=== PATIENT | female | born 1985 | race Caucasian/White ===

== ENCOUNTER 2016-11-07 18:55 | Emergency (ER) ==
[2016-11-07] MEDS ORDERED: PHENERGAN IM ONE (19:15)
[2016-11-07 19:20] LABS: URINE SOURCE CLEAN CATCH
--- NOTE | 2016-11-07 19:21 | PROVIDER DOCUMENTATION ---
HPI-Female /OB/Breast - General Chief Complaint: Abdominal Pain Stated Complaint: 14 WEEKS PREG (THROWING UP) Time Seen by Provider: 11/07/16 19:09 Source: reports: patient Allergies/Adverse Reactions: Patient Allergies Allergy/AdvReac Type Severity Reaction Status Date / Time No Known Allergies Allergy Verified 07/02/13 19:26 Home Medications: Home Medication List Medication Instructions Recorded Confirmed Last Taken Type Cephalexin [Keflex] 500 mg PO BID #14 capsule 11/07/16 Unknown Rx - History of Present Illness-Female /OB Nature of Presenting Problem: 31 y/o , 14 wks dated by US in October at [facility], no care, still smoking a pack a day, c/o ruq pain that radiates to the scapula and vomiting, that is worse than her typical related nausea and vomiting. Took a phenergan at 10:00, and 1200 a Zofran. STates she has not been able to eat since then. Denies vaginal bleeding, spotting or dysuria. Denies lower abdominal pain Review of Systems - Adult - REVIEW OF SYSTEMS - ADULT Constitutional: reports: no symptoms reported. denies: chills, fever, fatique Eyes: reports: no symptoms reported. denies: decreased vision, blurred vision, double vision, eye pain Ears, Nose, Mouth & Throat: reports: no symptoms reported. denies: ear pain, nose pain, throat pain Cardiovascular: reports: no symptoms reported. denies: chest pain, palpitations Respiratory: reports: no symptoms reported. denies: cough, shortness of breath , wheezing Gastrointestinal: reports: see HPI, abdominal pain, nausea, poor appetite, vomiting. denies: diarrhea Genitourinary: reports: no symptoms reported. denies: dysuria, discharge, frequency Musculoskeletal: reports: no symptoms reported. denies: muscle aches Integumentary: reports: no symptoms reported. denies: rash Neurological: reports: no symptoms reported. denies: headache/migraines Psychiatric: reports: no symptoms reported Endocrine: reports: no symptoms reported Hematologic/Lymphatic: reports: no symptoms reported Allergic/Immunologic: reports: no symptoms reported All Other Systems: Reviewed and Negative Past History - Adult - PAST MEDICAL HISTORY-ADULT Review of Records: reports: Old Records Reviewed, Nursing Assessment Review, Medications Reviewed Major Childhood Illnesses: reports: denies history Cardiovascular: reports: denies history Respiratory: reports: denies history Gastrointestinal: reports: denies history Obstetrical/Gynecological: reports: denies history Genitourinary: reports: denies history Musculoskeletal: reports: denies history Neurological: reports: denies history Endocrine/Immune: reports: denies history Other Conditions: reports: denies history - FAMILY HISTORY Family History: reviewed, not pertinent - SOCIAL HISTORY Smoking: greater than 1 pack/day Provider spent 3-5 mins advising pt. on dangers of tobacco.: Discussed manners to quit use, and f/u contacts for add'l counseling. Substance Use: none/never Alcohol Use Frequency: never Physical Exam-General - PHYSICAL EXAM-ADULT Initial Vital Signs Reviewed: Yes - CONSTITUTIONAL General Appearance: appears well, alert, no apparent distress - EYES Eyes: PERRL/EOMI, pink conjunctivae - HEAD, EARS, NOSE, MOUTH & THROAT HENMT: normocephalic/atraumatic, moist mucous membranes - NECK Neck: normal inspection - RESPIRATORY Respiratory: chest non-tender, lungs clear, normal breath sounds, no pleuratic chest pain, no respiratory distress, no accessory muscle use. negative: respiratory distress, decreased breath sounds, accessory muscle use, crackles, rales, rhonchi, wheezing - CARDIOVASCULAR Cardiovascular: normal peripheral pulses, regular rate, rhythm - GASTROINTESTINAL (ABDOMEN) Abdominal Exam: normal bowel sounds, soft, no organomegaly, no pulsatile mass, Lynne's sign - MUSCULOSKELETAL Back Exam: normal inspection Extremity: normal gait - SKIN Integumentary: normal color, normal turgor, warm/dry - NEUROLOGIC Neurologic: grossly normal, no motor/sensory deficits - PSYCHIATRIC Psych/Mental Status: normal mood/affect, normal thought content, normal thought process Progress - PLAN OF CARE/RESULTS Progress/Plan/Lab Results: Vital Signs Temp Pulse Resp BP Pulse Ox 11/07/16 19:01 98.8 F 112 H 20 117/066 100 No Known Allergies Allergy (Verified 07/02/13 19:26) No Home Medications 11/07/16 Laboratory 11/07/16 11/07/16 11/07/16 19:55 19:55 19:55 WBC 8.40 RBC 4.47 Hgb 14.3 Hct 40.3 MCV 90.2 MCH 32.0 H MCHC 35.5 RDW Std Deviation 13.0 Plt Count 265 MPV 8.9 Immature Gran % (Auto) 0.2 Neut % (Auto) 86.1 H Lymph % (Auto) 8.6 L [place] % (Auto) 4.0 Eos % (Auto) 1.0 Baso % (Auto) 0.1 Immature Gran # (Auto) 0.02 Neut # (Auto) 7.23 H Lymph # (Auto) 0.72 L [place] # (Auto) 0.34 Eos # (Auto) 0.08 Baso # (Auto) 0.01 Sodium 131 L Potassium 2.9 L Chloride 100 Carbon Dioxide 19 L Anion Gap 11 BUN 12 Creatinine 0.4 L Estimated GFR/1.73 m2 > 60 BUN/Creatinine Ratio 30 Glucose 129 H Calculated Osmolality 264 Calcium 8.6 L Total Bilirubin 0.30 AST 16 ALT 16 Alkaline Phosphatase 64 Total Protein 6.8 Albumin 3.6 Globulin 3.0 Albumin/Globulin Ratio 1.0 Ser , Semi-Qnt 10090.0 Urine Source Urine Color Urine Clarity Urine pH Ur Specific [place] Urine Protein Urine Ketones Urine Blood Urine Nitrite Urine Bilirubin Urine Urobilinogen Urine Microscopic RBC Urine WBC Urine Microscopic WBC Ur Epithelial Cells Urine Crystals Urine Bacteria Urine Casts Urine Yeast Urine Glucose 11/07/16 19:12 WBC RBC Hgb Hct MCV MCH MCHC RDW Std Deviation Plt Count MPV Immature Gran % (Auto) Neut % (Auto) Lymph % (Auto) [place] % (Auto) Eos % (Auto) Baso % (Auto) Immature Gran # (Auto) Neut # (Auto) Lymph # (Auto) [place] # (Auto) Eos # (Auto) Baso # (Auto) Sodium Potassium Chloride Carbon Dioxide Anion Gap BUN Creatinine Estimated GFR/1.73 m2 BUN/Creatinine Ratio Glucose Calculated Osmolality Calcium Total Bilirubin AST ALT Alkaline Phosphatase Total Protein Albumin Globulin Albumin/Globulin Ratio Ser , Semi-Qnt Urine Source CLEAN CATCH Urine Color ASHANTI Urine Clarity SL. CLOUDY A Urine pH 6.5 Ur Specific [place] 1.015 Urine Protein 1+(30 mg/dL) A Urine Ketones 3+(Large) A Urine Blood NEGATIVE Urine Nitrite NEGATIVE Urine Bilirubin 1+ A Urine Urobilinogen 1+(1 mg/dL) Urine Microscopic RBC Not Reportable Urine WBC 2+ A Urine Microscopic WBC TNTC A Ur Epithelial Cells >10 A Urine Crystals NONE SEEN Urine Bacteria 1+ Urine Casts NONE SEEN Urine Yeast NONE SEEN Urine Glucose NEGATIVE Orders Category Date Time Status FHT [ Heart Tones] NOW Care 11/07/16 19:19 Active Saline Loc NOW Care 11/07/16 19:44 Active US GB < RUQ (LIMITED) [US] Stat Exams 11/07/16 19:14 Draft US OBS COMPLETE < 14 WKS [US] Stat Exams 11/07/16 21:14 Taken CBC WITH ELECTRONIC DIFF [HEME] Stat Lab 11/07/16 19:55 Completed COMPREHENSIVE METABOLIC PANEL [CHEM] Stat Lab 11/07/16 19:55 Completed QUANT TEST Stat Lab 11/07/16 19:[address] W/POSS RFLX CULT [URINALYSIS] Stat Lab 11/07/16 19:12 Completed URINE CULTURE [RM] Routine Lab 11/07/16 Received 0.9% Sodium Chloride Inj [Ns] 1,000 ml Med 11/07/16 19:44 Discontinued IV 999 mls/hr CefTRIAXONE 1 GM/NS [Rocephin 1 gm/Ns] 50 ml Med 11/07/16 19:44 Discontinued IV NOW Potassium Chloride E.r. [Klor-Con] Med 11/07/16 20:44 Discontinued 40 meq PO NOW ONE Promethazine [Phenergan] Med 11/07/16 19:15 Discontinued 25 mg IM NOW ONE - ULTRASOUND (By Radiology) 1 US Study: Gallbladder Impression: Normal (single gallstone or polyp, otherwise normal gallbladder and RUQ US per Dr. Santo, radiology) 2 US Study: Transvaginal Impression: Normal (IUP at 15 W 0 d FHR [address] Santo) Departure - Departure Time of Disposition Order: 22:43 DIAGNOSIS: Nausea and vomiting during prior to 22 weeks gestation, Gallbladder pain, Acute UTI Disposition: HOME 01 Certified Medical Emergency: Emergent Condition: Stable Additional Instructions: ED Follow Up Instructions: You have been treated by a care provider in the Emergency Department. These instructions are being provided to you so you can have an understanding of how to care for yourself upon discharge. Upon discharge from the Emergency Department, you are responsible for making arrangements for follow-up care by a physician of your choice. Take all prescribed medications as directed. Return to the Emergency Department immediately for any new or worsening symptoms. You may call the Physician Referral phone number at [phone] to obtain a list of Physicians who are taking new patients. Prescriptions: Cephalexin [Keflex] 500 mg PO BID #14 capsule Attestation - Physician/ PEMA Attestation Patient care was provided by Advanced Practice Provider:: Yes Advanced Practice Provider:: Annette Grimaldo Advanced Practice Provider documentation review:: The Mid-level provider documentation, treatment plan and medical decision making was reviewed by the physician who agrees with all treatment and medical decision making by the MLP.
[2016-11-07 19:25] LABS: BILIRUBIN URINE 1+ (NEGATIVE); BLOOD URINE NEGATIVE (NEGATIVE); CLARITY SL. CLOUDY (CLEAR); COLOR AMBER; GLUCOSE URINE NEGATIVE (NEGATIVE); LEUKOCYTES URINE 2+ (NEGATIVE); NITRITE URINE NEGATIVE (NEGATIVE); PH URINE 6.5; PROTEIN URINE 1+(30 mg/dL) mg/dL (NEGATIVE); SP GRAVITY URINE 1.015; UROBILINOGEN URINE 1+(1 mg/dL)
[2016-11-07] MEDS ORDERED: NS 1,000 ML IV ONE (19:44)
[2016-11-07] MEDS ORDERED: ROCEPHIN 1 GM/NS 50 ML IV ONE (19:44)
[2016-11-07 19:46] LABS: URINE CAST NONE SEEN /LPF; URINE CRYSTAL NONE SEEN /HPF; URINE CULTURE PL NEEDED? YES; URINE EPITHELIAL CELLS >10 /HPF (<10); URINE WBC TNTC /HPF (<10)
[2016-11-07 20:03] LABS: MANUAL DIFF NEEDED? NO
[2016-11-07 20:18] LABS: BASO% 0.1 % (0.0-0.8); EOS# 0.08 X1000 (0.0-0.7); HEMATOCRIT 40.3 % (37.0-47.0); HEMOGLOBIN 14.3 g/dL (12.0-16.0); IMM GRAN# 0.02 X1000 (0.0-0.04); IMM GRAN% 0.2 % (0.0-0.5); LYMPH# 0.72 X1000 (1.2-3.4); LYMPH% 8.6 % (20.5-51.1); MCHC 35.5 g/dL (33-37); MCV 90.2 FL (81-99); MONO# 0.34 X1000 (0.11-0.59); MPV 8.9 FL (7.4-10.4); NEUT% 86.1 % (42.2-75.2); PLT 265 X1000 (130-400); RBC 4.47 XMIL (4.2-5.4)
[2016-11-07 20:38] LABS: AGAP 11; ALBUMIN 3.6 g/dL (3.5-5.0); ALKALINE PHOSPHATASE 64 U/L (32-104); BUN 12 mg/dL (8-22); CALCIUM 8.6 mg/dL (8.8-10.2); CHLORIDE 100 mmol/L (98-107); COSMO 264; GOT 16 U/L (10-30); GPT 16 U/L (10-36); POTASSIUM 2.9 mmol/L (3.5-5.1); SODIUM 131 mmol/L (136-145); TCO2 19 mmol/L (25-35); TOTAL PROTEIN 6.8 g/dL (6.3-8.3)
[2016-11-07] MEDS ORDERED: KLOR-CON PO ONE (20:44)
--- NOTE | 2016-11-07 21:49 | Diag Imaging Result Document ---
PROCEDURE NAME: US GB < RUQ (LIMITED) - 11/07/2016 RIGHT UPPER QUADRANT ULTRASOUND: FINDINGS: Normal pancreas. No aneurysmal dilatation to the abdominal aorta. Normal inferior vena cava. No focal or diffuse hepatic abnormality. No hydronephrosis to the right kidney. Normal echogenicity and cortical thickness. There is a 4 mm echogenic structure within the gallbladder. No posterior shadowing. No definite movement. The gallbladder wall is not thickened. No ascites in the right upper quadrant. IMPRESSION: Tiny nonshadowing stone versus polyp within the gallbladder, but otherwise normal right upper quadrant ultrasound. The common bile duct measures 4 mm. A preliminary report was given at the time of the exam.
[2016-11-07 23:06] VITALS: BP 103/63
--- NOTE | 2016-11-08 06:52 | Diag Imaging Result Document ---
PROCEDURE NAME: US OBS COMPLETE < 14 WKS - 11/07/2016 TRANSVAGINAL PELVIC ULTRASOUND: FINDINGS: There is an intrauterine with an estimated gestational age of 15 weeks 0 days plus/minus 8 days. This would correspond with an estimated date of delivery of May 01, 2017. heart rate is 156 beats per minute. The placenta is anterior. Cervix is closed. No focal abnormality identified. IMPRESSION: Intrauterine with an estimated gestational age of 15 weeks 0 days. A preliminary report was given at 10:36 p.m.
== END 2016-11-07 23:07 | disposition home or self-care (01) ==
LOC: P.ED 18:55
DX: O21.0 Mild hyperemesis gravidarum (principal); O23.42 Unspecified infection of urinary tract in pregnancy, second trimester; O26.892 Other specified pregnancy related conditions, second trimester; K82.9 Disease of gallbladder, unspecified; R10.9 Unspecified abdominal pain; Z3A.15 15 weeks gestation of pregnancy; O99.332 Smoking (tobacco) complicating pregnancy, second trimester; F17.210 Nicotine dependence, cigarettes, uncomplicated; Z71.6 Tobacco abuse counseling
CPT/HCPCS: 76705; 76801; 80053; 81001; 84702; 85025; 87088; 96361; 96365; 96372; J0696; J2550; J7030

== ENCOUNTER 2017-05-03 05:22 | Inpatient (IN) ==
[2017-05-02 11:14] LABS: HEMATOCRIT 36.5 % (37.0-47.0); HEMOGLOBIN 12.6 g/dL (12.0-16.0); MCH 31.7 PG (27-31); MCHC 34.5 g/dL (33-37); MCV 91.9 FL (81-99); MPV 9.3 FL (7.4-10.4); RBC 3.97 XMIL (4.2-5.4)
--- NOTE | 2017-05-03 03:41 | HISTORY AND PHYSICAL ---
DATE OF PROCEDURE: 05/03/2017 PREOP DIAGNOSES: 1. Intrauterine at term requested primary delivery. 2. Undesired fertility for tubal ligation. CONDITION: Stable. HISTORY OF PRESENT ILLNESS: Ms. Stokes is a 31-year-old 4, para 3 with estimated date of delivery of 05/05/2017 who requested a primary delivery and a tubal ligation. Patient stated understanding risk and benefits of delivery. She has had good care with care starting at 18 weeks. A positive blood type. GC and Chlamydia negative. Hepatitis B negative, RPR nonreactive. HIV negative, rubella immune, she is having baby girl, she had a normal anatomy scan, Glucola was 75 and GBS was negative. PAST HISTORY: 3 previous deliveries of vaginal. PAST MEDICAL HISTORY: Negative. PAST SURGICAL HISTORY: Tonsillectomy. ALLERGIES: No allergies. MEDICATIONS: She is taking vitamins with iron. SOCIAL HISTORY: [id number] smoker. Denies alcohol, drugs. FAMILY HISTORY: Noncontributory. PHYSICAL EXAM: VITAL SIGNS: Weight 169, height 67 inches, blood pressure 102/62. GENERAL: She is alert and cooperative no distress. NECK: Supple. LUNGS: Clear. HEART: Regular sinus rhythm. ABDOMEN: Is gravid, fundal height deferred. EXTREMITIES: No cyanosis, clubbing, edema extremities. ASSESSMENT: Term , undesired fertility. PLAN: Primary delivery with tubal ligation. cc: Ceferino Kelly MD
[2017-05-03] MEDS ORDERED: KEFZOL 1 GM/D5W 1 GM/50 ML IVPB IV PRN (05:25)
[2017-05-03] MEDS ORDERED: SODIUM CHLORIDE 0.9% INJ ONE (05:26)
[2017-05-03] MEDS ORDERED: BICITRA PO ONE (05:26)
[2017-05-03] MEDS ORDERED: PEPCID IV ONE (05:26)
[2017-05-03] MEDS: LR 1,000 ML IV SCH ×2 (06:32→07:09)
[2017-05-03 06:56] LABS: MANUAL DIFF NEEDED? NO
[2017-05-03 06:59] LABS: BASO% 0.3 % (0.0-0.8); EOS# 0.29 X1000 (0.0-0.7); EOS% 2.9 % (0.0-10.0); HEMATOCRIT 38.5 % (37.0-47.0); HEMOGLOBIN 13.5 g/dL (12.0-16.0); IMM GRAN# 0.04 X1000 (0.0-0.04); IMM GRAN% 0.4 % (0.0-0.5); LYMPH# 2.09 X1000 (1.2-3.4); LYMPH% 20.8 % (20.5-51.1); MCH 31.8 PG (27-31); MCHC 35.1 g/dL (33-37); MCV 90.8 FL (81-99); MONO# 0.72 X1000 (0.11-0.59); MONO% 7.1 % (1.7-9.3); MPV 9.6 FL (7.4-10.4); NEUT% 68.5 % (42.2-75.2); PLT 272 X1000 (130-400); RBC 4.24 XMIL (4.2-5.4)
[2017-05-03 07:00] LABS: UR AMPHETAMINES QUAL NONE DETECTED (NONE DETECT); UR BARBITUATES QUAL NONE DETECTED (NONE DETECT); UR BENZODIAZEPIN QUAL NONE DETECTED (NONE DETECT); UR CANNABINOIDS QUAL NONE DETECTED (NONE DETECT); UR COCAINE QUAL NONE DETECTED (NONE DETECT); UR MDMA QUAL NONE DETECTED (NONE DETECT); UR METHADONE QUAL NONE DETECTED (NONE DETECT); UR METHAMPHETAMINE QUAL NONE DETECTED (NONE DETECT); UR OPIATES QUAL NONE DETECTED (NONE DETECT); UR OXYCODONE QUAL NONE DETECTED (NONE DETECT); UR PCP QUAL NONE DETECTED (NONE DETECT); UR TCA QUAL NONE DETECTED (NONE DETECT)
[2017-05-03] MEDS ORDERED: DURAMORPH ONE (08:21)
[2017-05-03] MEDS ORDERED: ZOFRAN ONE (09:08)
[2017-05-03] MEDS ORDERED: NEO-SYNEPHRINE ONE (09:09)
[2017-05-03] MEDS ORDERED: PITOCIN ONE (09:09)
[2017-05-03] MEDS ORDERED: ZOFRAN ODT PO PRN (09:49)
[2017-05-03] MEDS ORDERED: NARCAN INJ PRN (09:49)
[2017-05-03] MEDS ORDERED: MORPHINE IV PRN (09:49)
[2017-05-03] MEDS ORDERED: ZOFRAN IV PRN ×2 (09:49)
[2017-05-03] MEDS ORDERED: BENADRYL IV PRN (09:49)
[2017-05-03] MEDS ORDERED: TORADOL IV PRN (09:50)
[2017-05-03] MEDS ORDERED: MYLICON PO PRN (09:55)
[2017-05-03] MEDS ORDERED: PHENERGAN IM PRN (09:55)
[2017-05-03] MEDS ORDERED: CYTOTEC PO PRN (09:55)
[2017-05-03] MEDS ORDERED: DEMEROL PO PRN ×2 (09:55)
[2017-05-03] MEDS ORDERED: PITOCIN 20 UNITS/LR 20 UNITS/1,000 ML IV.SOLN IV ONE (09:55)
[2017-05-03] MEDS ORDERED: PITOCIN IM PRN (09:55)
[2017-05-03] MEDS ORDERED: HYDROXYZINE IM PRN (09:55)
[2017-05-03] MEDS ORDERED: M-M-R II VACCINE SUBQ ONE (09:55)
[2017-05-03] MEDS ORDERED: HYDROXYZINE PO PRN (09:55)
[2017-05-03] MEDS ORDERED: DULCOLAX PR PRN (09:55)
[2017-05-03] MEDS ORDERED: PERCOCET-5 PO PRN (09:55)
[2017-05-03] MEDS ORDERED: BOOSTRIX VACCINE IM ONE (09:55)
[2017-05-03] MEDS ORDERED: DEMEROL IM PRN (09:55)
[2017-05-03] MEDS: TORADOL IV SCH ×3 (10:24→22:08)
--- NOTE | 2017-05-03 11:29 | OPERATIVE NOTE ---
PROCEDURE DATE: 05/03/2017 PREOPERATIVE DIAGNOSES: 1. Term . 2. Undesired fertility. PHYSICIAN: Dr. Ceferino Kelly. ANESTHESIA: Spinal with Dr. Tomas. FINDINGS: Viable female , 6 pounds 7 ounces, 10/10 Apgars. PATHOLOGY: Fimbriated ends of both tubes. ESTIMATED BLOOD LOSS: 600 mL. DRAINS: Long catheter. DESCRIPTION OF PROCEDURE IN DETAIL: Ms. Stokes is a 31-year-old admitted this morning for elective section and tubal ligation. Questions were answered. She was brought to the operating room where spinal anesthesia was placed, prepped and draped in sterile fashion. Adequate anesthesia was verified. A Pfannenstiel skin incision through the subcuticular tissue, fascia was cut. Muscle was pulled to the side. Peritoneum was entered sharply. Bladder blade was placed. Hysterotomy incision was made in the lower uterine segment and it is quite thick. Once membranes were encountered, the incision was enlarged by cutting with the curved Valero's to the lateral sides. was delivered occiput anterior through the hysterotomy incision. Membranes were ruptured. Clear fluid. Nuchal cord x1 was reduced and the shoulders were delivered followed by the rest of the body. Cord was doubly clamped and cut. Care of taken over nursery personnel. Cord blood was obtained. Three vessel cord noted. Uterus was massaged to deliver the placenta, which delivered intact. Uterus exteriorized, wiped free of clots, mainly placental tissue. Hysterotomy incision closed in a single layer of 0 Vicryl running and locking. Attention turned to the tubal. The right tube was elevated up with a Osmani, fimbriated end was clamped off with a Maylin. It was cut and removed. The pedicle was tied with 2- 0 plain gut. Good hemostasis. The procedure was repeated on patient's left. Both tubes fimbriated ends were sent to pathology. Uterus was replaced back into the abdomen. Good hemostasis was noted. Irrigation was done. The tubal pedicles were hemostatic. The peritoneum was reapproximated with 0 chromic. Muscle plicated in the midline with interrupted 0 chromic. Fascia with 0 Vicryl running occasionally locking, subcutaneous tissue irrigated and made hemostatic by electrocautery. Torey fascia was reapproximated with 3-0 chromic. Skin reapproximated with 4-0 Biosyn subcuticular stitch. All counts were correct. She was taken to the recovery room in stable condition. cc: Ceferino Kelly MD
[2017-05-03] MEDS: NICODERM PATCH TD SCH (12:23)
[2017-05-03] MEDS: MYLICON PO SCH ×3 (13:37→20:40)
[2017-05-03] MEDS: PERCOCET-10 PO PRN ×2 (14:15→20:40)
[2017-05-03] MEDS: PITOCIN 10 UNITS/LR 10 UNIT/1,000 ML IV.SOLN IV SCH (17:51)
[2017-05-03] MEDS: PERICOLACE PO SCH (20:39)
[2017-05-04] MEDS: PITOCIN 10 UNITS/LR 10 UNIT/1,000 ML IV.SOLN IV SCH (00:54)
[2017-05-04] MEDS: TORADOL IV SCH (04:14)
[2017-05-04] MEDS: PERCOCET-10 PO PRN ×4 (04:19→18:58)
[2017-05-04 04:41] LABS: MANUAL DIFF NEEDED? NO
[2017-05-04 04:55] LABS: BASO% 0.3 % (0.0-0.8); EOS# 0.28 X1000 (0.0-0.7); EOS% 2.9 % (0.0-10.0); HEMATOCRIT 31.7 % (37.0-47.0); HEMOGLOBIN 10.8 g/dL (12.0-16.0); IMM GRAN# 0.03 X1000 (0.0-0.04); IMM GRAN% 0.3 % (0.0-0.5); LYMPH% 18.6 % (20.5-51.1); MCH 31.4 PG (27-31); MCHC 34.1 g/dL (33-37); MCV 92.2 FL (81-99); MONO# 0.68 X1000 (0.11-0.59); MPV 9.3 FL (7.4-10.4); NEUT% 70.9 % (42.2-75.2); PLT 209 X1000 (130-400); RBC 3.44 XMIL (4.2-5.4)
[2017-05-04] MEDS: MYLICON PO SCH ×4 (08:58→20:52)
[2017-05-04] MEDS: PRECARE PO SCH (08:58)
[2017-05-04] MEDS ORDERED: LR 1,000 ML IV SCH (09:29)
[2017-05-04] MEDS: NICODERM PATCH TD SCH (10:15)
[2017-05-04] MEDS: AMBIEN PO PRN (20:49)
[2017-05-04] MEDS: PERICOLACE PO SCH (20:51)
[2017-05-04] MEDS: MOTRIN PO PRN (23:38)
[2017-05-05] MEDS: PERCOCET-10 PO PRN ×4 (06:18→20:01)
[2017-05-05] MEDS: PRECARE PO SCH (09:38)
[2017-05-05] MEDS: NICODERM PATCH TD SCH (09:38)
[2017-05-05] MEDS: MOTRIN PO PRN ×2 (09:38→20:00)
[2017-05-05] MEDS: MYLICON PO SCH ×4 (09:39→20:00)
[2017-05-05] MEDS: PERICOLACE PO SCH (20:01)
[2017-05-05] MEDS: AMBIEN PO PRN (20:57)
[2017-05-06] MEDS: PERCOCET-10 PO PRN ×2 (01:09→07:46)
[2017-05-06] MEDS: MYLICON PO SCH (07:46)
[2017-05-06] MEDS: MOTRIN PO PRN (07:46)
[2017-05-06] MEDS: PRECARE PO SCH (07:47)
[2017-05-06 08:23] VITALS: BP 151/88
--- NOTE | 2017-05-07 03:10 | DISCHARGE SUMMARY ---
ADMISSION DATE: 05/03/2017 DISCHARGE DATE: 05/06/2017 DATE OF ADMISSION: 05/03/2017. DATE OF DISCHARGE: 05/06/2017. ADMITTING DIAGNOSES: 1. Term . 2. Undesired fertility. 3. Requesting delivery. SUMMARY: Ms. Stokes is a 31-year-old 4, para 3, at term gestation. She was asking for a primary and tubal sterilization. She was therefore admitted to the hospital by Dr. Kelly and she underwent a primary low transverse followed by a bilateral fimbriectomy. She delivered a 6 pound, 7 ounce female infant with an Apgars of 10 at 1 minute and 10 at 5 minutes. There were no intraoperative complications. Following delivery, the patient did well. She remained afebrile and all vital signs were stable. She had an admission hemoglobin and hematocrit of 13.5/38.5 with a discharge hemoglobin and hematocrit being 10.8/31.7. On the day of discharge, cardiac and pulmonary examinations normal. Bowel and bladder function was normal. Her incision was clean and dry. She was having scant vaginal bleeding. PLAN: Ms. Stokes is being discharged today and will seen back in the office in 1 week. Routine discharge instructions, activity limitations, and precautions were discussed. She will continue vitamins and she was given prescriptions for Percocet 10 #30 and Motrin for postoperative pain. cc: MD Ceferino Shin MD
== END 2017-05-06 11:20 | disposition home or self-care (01) ==
LOC: P.LD 05:22 → P.WC 11:10
PROVIDERS: ADMIT Obstetrics & Gynecology; ATTEND Obstetrics & Gynecology